=== PATIENT | male | born 1985 | race Caucasian/White ===

== ENCOUNTER 2016-10-09 10:09 | Emergency (ER) | payer MEDICAID ==
[2016-10-09] MEDS ORDERED: SODIUM CHLORIDE 0.9% 1,000 ML IV ONE (10:25)
[2016-10-09] MEDS ORDERED: CLINDAMYCIN 900 MG/50 ML 50 ML IV ONE ×2 (10:25→11:58)
== END 2016-10-09 13:13 | disposition home or self-care (01) ==
DX: L03.116 Cellulitis of left lower limb (principal); Z87.898 Personal history of other specified conditions; F17.200 Nicotine dependence, unspecified, uncomplicated

== ENCOUNTER 2018-07-03 08:08 | Emergency (ER) | payer MEDICAID ==
[2018-07-03] MEDS ORDERED: HYDROcod/ACETAM 5/325 MG TABLET PO STA (08:21)
--- NOTE | 2018-07-03 08:25 | ED Physician Documentation ---
PD HPI NECK PAIN - Stated complaint Stated Complaint: NECK PX - Chief complaint Chief Complaint: Back Pain - History obtained from History obtained from: Patient - History of Present Illness Timing - onset: How many days ago (10) Timing - duration: Days (10) Timing - details: Still present (Now worse.) Location: Lower, Right Quality: Pain Associated symptoms: Numbness (right shoulder). No: Fever, Weakness Worsened by: Movement Similar symptoms before: Has not had sx before - Treatment prior to arrival Treatment prior to arrival: Advil 400 mg. - Additional information Additional information: The patient is a 32-year-old male who presents with severe pain in his neck, starting 10 days ago. There is no known injury. The pain has been waxing and waning for the past 10 days, but became more severe this morning. He denies fever, difficulty breathing, or weakness. He does report mild decreased sensation in his right shoulder. He has no history of similar symptoms in the past. He took 400 mg ibuprofen this morning, without relief. Review of Systems Constitutional: denies: Fever Eyes: denies: Irritation Nose: denies: Congestion Throat: denies: Sore throat Cardiac: denies: Chest pain / pressure Respiratory: denies: Dyspnea, Cough GI: denies: Abdominal Pain, Nausea, Vomiting Skin: denies: Rash Musculoskeletal: reports: Neck pain. denies: Extremity pain Neurologic: reports: Numbness (Reports mild numbness right shoulder.). denies: Focal weakness, Headache PD PAST MEDICAL HISTORY - Past Medical History Cardiovascular: None Respiratory: None Neuro: None Endocrine/Autoimmune: None - Past Surgical History Past Surgical History: No - Present Medications Home Medications: Ambulatory Orders Medication Instructions Recorded Confirmed Cyclobenzaprine [Flexeril] 10 mg PO TID PRN #20 tablet 07/03/18 Ibuprofen [Advil] 400 mg PO 07/03/18 - Allergies Allergies/Adverse Reactions: Allergies Allergy/AdvReac Type Severity Reaction Status Date / Time azithromycin [From Zithromax] Allergy Anaphylaxis Verified 07/03/18 08:17 - Social History Does the pt smoke?: Yes Smoking Status: Current every day smoker Does the pt drink ETOH?: No Does the pt have substance abuse?: Yes PD ED PE NORMAL - Vitals Vital signs reviewed: Yes (normal) - General General: Alert and oriented X 3, Well developed/nourished - HEENT HEENT: Atraumatic, Pharynx benign - Neck Neck: Supple, no meningeal sign, Other (There is tenderness to palpation in the mid to lower cervical spine and right paraspinous musculature. There is decreased range of motion of the neck, due to pain. He is able to elevate both arms above his head, but elevation past 90 degrees exacerbates the neck pain, particularly with the left arm elevation. Distal neurovascular is intact.) - Cardiac Cardiac: RRR - Respiratory Respiratory: No respiratory distress, Clear bilaterally - Abdomen Abdomen: Soft, Non tender - Back Back: No CVA TTP, No spinal TTP - Derm Derm: No rash - Extremities Extremities: No tenderness to palpate, No edema - Neuro Neuro: Alert and oriented X 3, No motor deficit, No sensory deficit, Normal speech Results - Vitals Vitals: Vital Signs - 24 hr 07/03/18 08:14 Temperature 36.7 C Heart Rate 76 Respiratory 16 Rate Blood Pressure 127/83 H O2 Saturation 98 Oxygen O2 Source Room air - Rads (name of study) CT Cervical Spine Radiology: Prelim report reviewed, EMP read contemporaneously, See rad report (No acute findings. Minor degenerative changes seen.) PD MEDICAL DECISION MAKING - ED course Complexity details: reviewed results, re-evaluated patient, considered differential, d/w patient ED course: The patient's presentation is most consistent with cervical strain. There is no anatomic abnormality detected on CT scan that would account for the severity of his pain. Treatment in the emergency department included administration of Vicodin 1 tablet orally. He is being discharged with prescription for Flexeril. I discussed with him and his father the expected course of injury, symptomatic treatment and outpatient follow-up, as well as potentially worrisome signs or symptoms that should prompt reevaluation in the emergency department. Departure - Departure Disposition: 01 Home, Self Care Clinical Impression: Neck pain Condition: Stable Instructions: ED Neck Pain No Trauma Follow-Up: Florence Baker ARNP [Credentialed Staff Provider] - Prescriptions: Cyclobenzaprine [Flexeril] 10 mg PO TID PRN #20 tablet PRN Reason: Spasms Comments: Apply ice pack to your neck intermittently for the next 2 or 3 days. You can use ibuprofen, up to 800 mg 3 times daily for its anti-inflammatory effect. You can use Flexeril as prescribed if needed for spasms. Let pain be your guide to activity level. Follow-up with your primary physician within 2 weeks. Call to schedule appointment. Return to the emergency department if you develop increasing pain, numbness or weakness, or otherwise worsening symptoms.
--- NOTE | 2018-07-03 09:18 | CT Report ---
Reason: New onset, severe neck pain Procedure Date: 07/03/2018 Accession Number: [id number] / [id number] Procedure: CT - Cervical Spine W/O CPT Code: FULL RESULT: EXAM: CT CERVICAL SPINE WITHOUT CONTRAST DATE: 07/03/2018 08:55 AM. HISTORY: Cervicalgia. COMPARISONS: None. TECHNIQUE: Thin-section axial images were acquired of the cervical spine without contrast. Post-processing: Coronal and sagittal reformats. Other: None. In accordance with CT protocol optimization, one or more of the following dose reduction techniques were utilized for this exam: automated exposure control, adjustment of mA and/or KV based on patient size, or use of iterative reconstructive technique. FINDINGS: Alignment: No scoliosis or spondylolisthesis. Bones: No fracture or bone lesion. Interspace Levels/Facets: Minor degenerative changes are seen in the mid cervical spine. The bony central canal is relatively patent. Musculature: Normal. No fatty atrophy. Other: The paravertebral and prevertebral soft tissues are unremarkable. The lung apices are clear. IMPRESSION: No acute findings. Minor degenerative changes seen. [facility]IA
[2018-07-03 09:52] VITALS: BP 113/76
== END 2018-07-03 09:52 | disposition home or self-care (01) ==
LOC: ED 08:08
DX: M54.2 Cervicalgia (principal); F17.200 Nicotine dependence, unspecified, uncomplicated
CPT/HCPCS: 72125; 99283; A9270

== ENCOUNTER 2020-03-27 16:01 | Outpatient (CLI) | payer MEDICAID ==
[2020-03-27 16:27] LABS: BASOPHILS # (AUTO) 0.1 10^3/uL (0.0-0.1); BASOPHILS % (AUTO) 0.8 %; EOSINOPHILS # (AUTO) 0.1 10^3/uL (0.0-0.7); EOSINOPHILS % (AUTO) 1.4 %; HGB - HEMOGLOBIN 15.1 g/dL (14.0-18.0); LYMPHOCYTES # (AUTO) 1.9 10^3/uL (1.5-3.5); LYMPHOCYTES % (AUTO) 21.7 %; MEAN CORPUSCULAR HGB CONC 35.2 g/dL (32.0-36.0); MEAN CORPUSCULAR VOLUME 85.3 fL (80.0-94.0); MEAN PLATELET VOLUME 9.1 fL (7.4-11.4); MONOCYTES # (AUTO) 0.6 10^3/uL (0.0-1.0); MONOCYTES % (AUTO) 6.5 %; NEUTROPHILS # (AUTO) 6.2 10^3/uL (1.5-6.6); NEUTROPHILS % (AUTO) 69.4 %; PLT - PLATELET COUNT 206 10^3/uL (130-450); RED BLOOD COUNT 5.03 10^6/uL (4.70-6.10); RED CELL DISTRIBUTION WIDTH 12.5 % (12.0-15.0); WHITE BLOOD COUNT 8.9 x10^3/uL (4.8-10.8)
[2020-03-27 16:42] LABS: ALBUMIN 4.6 g/dL (3.2-5.5); BILIRUBIN,DIRECT 0.2 mg/dL (0.1-0.5); BILIRUBIN,TOTAL 0.7 mg/dL (0.2-1.0); CREATININE 0.9 mg/dL (0.6-1.2); TOTAL PROTEIN 7.4 g/dL (6.7-8.2)
[2020-03-28 15:53] LABS: HIV AG/AB 4TH GEN NON-REACTIVE (NON-REACTIVE)
== END 2020-03-27 16:02 | disposition home or self-care (01) ==
LOC: LAB 16:01
PROVIDERS: ATTEND Emergency Medicine
DX: F11.20 Opioid dependence, uncomplicated (principal); B19.20 Unspecified viral hepatitis C without hepatic coma
CPT/HCPCS: 36415; 80048; 80076; 81599; 85025; 86592; 86704; 86706; 86708; 86803; 87340; 87389

== ENCOUNTER 2020-04-28 11:36 | Outpatient (CLI) | payer MEDICAID | END 2020-04-28 11:37 | disposition home or self-care (01) | LOC: LAB 11:36 | PROVIDERS: ATTEND Physician Assistant | DX: Z01.818 Encounter for other preprocedural examination (principal); Z20.828 Contact with and (suspected) exposure to other viral communicable diseases ==

== ENCOUNTER 2020-05-02 06:40 | Outpatient (CLI) | payer MEDICAID ==
--- NOTE | 2020-05-02 10:06 | Ultrasound Report ---
PROCEDURE: Abdomen Complete INDICATIONS: UNINTENTIONAL WEIGHT LOSS TECHNIQUE: Real-time scanning was performed of the abdominal and retroperitoneal organs, with image documentatio n. COMPARISON: None. FINDINGS: Liver: Increased hepatic parenchymal echogenicity most likely reflecting diffuse hepatic steatosis. N o focal hepatic mass. Gallbladder: Normal without shadowing calculus, sludge, wall thickening, or pericholecystic fluid. Biliary ducts: Intrahepatic bile ducts are non-dilated. Extrahepatic bile duct caliber measures 4.5 mm. Normal is 6-7 mm or less in diameter, or 10 mm or less post-cholecystectomy. Pancreas: Visualized portions of the pancreas are sonographically normal. Spleen: Spleen is normal in size and homogeneous in echotexture. Kidneys: Kidneys are normal in size and echotexture. Right kidney measures 10.6 cm long; left kidne y measures 11.9 cm long. No hydronephrosis or nephrolithiasis. No solid masses. Aorta: Visualized aorta is normal in caliber at less than 3 cm. Iliacs: Proximal common iliac arteries are normal in caliber at less than 2.5 cm. IVC: Intrahepatic inferior vena cava is patent. Miscellaneous: No free abdominal fluid. IMPRESSION: No acute finding. Hepatic steatosis. Reviewed by: Se Coello MD on 05/02/2020 10:05 AM PDT Approved by: Se Coello MD on 05/02/2020 10:05 AM PDT Station ID: [id number]
== END 2020-05-02 06:41 | disposition home or self-care (01) ==
LOC: DI 06:40
PROVIDERS: ATTEND Registered Nurse
DX: K76.0 Fatty (change of) liver, not elsewhere classified (principal)
CPT/HCPCS: 76700

== ENCOUNTER 2021-10-09 08:00 | Outpatient (CLI) | payer MEDICAID ==
[2021-10-09 20:31] LABS: BASOPHILS # (AUTO) 0.1 10^3/uL (0.0-0.1); BASOPHILS % (AUTO) 0.9 %; EOSINOPHILS # (AUTO) 0.1 10^3/uL (0.0-0.7); EOSINOPHILS % (AUTO) 1.6 %; HCT - HEMATOCRIT 47.2 % (42.0-52.0); HGB - HEMOGLOBIN 15.9 g/dL (14.0-18.0); LYMPHOCYTES # (AUTO) 1.8 10^3/uL (1.5-3.5); LYMPHOCYTES % (AUTO) 21.7 %; MEAN CORPUSCULAR HEMOGLOBIN 30.6 pg (27.0-31.0); MEAN CORPUSCULAR HGB CONC 33.7 g/dL (32.0-36.0); MEAN CORPUSCULAR VOLUME 90.9 fL (80.0-94.0); MEAN PLATELET VOLUME 9.9 fL (7.4-11.4); MONOCYTES # (AUTO) 0.6 10^3/uL (0.0-1.0); MONOCYTES % (AUTO) 7.5 %; NEUTROPHILS # (AUTO) 5.5 10^3/uL (1.5-6.6); NEUTROPHILS % (AUTO) 68.1 %; PLT - PLATELET COUNT 266 10^3/uL (130-450); RED BLOOD COUNT 5.19 10^6/uL (4.70-6.10); RED CELL DISTRIBUTION WIDTH 12.6 % (12.0-15.0); WHITE BLOOD COUNT 8.1 x10^3/uL (4.8-10.8)
[2021-10-09 20:39] LABS: ALBUMIN 4.6 g/dL (3.2-5.5); ALBUMIN/GLOBULIN RATIO 1.6 (1.0-2.2); BILIRUBIN,TOTAL 0.5 mg/dL (0.2-1.0); CREATININE 0.8 mg/dL (0.6-1.2); POTASSIUM 4.1 mmol/L (3.5-5.0); TOTAL PROTEIN 7.5 g/dL (6.7-8.2)
== END 2021-10-09 23:59 | disposition home or self-care (01) ==
LOC: LAB.S 08:00
PROVIDERS: ATTEND Physician Assistant Medical
DX: Z79.899 Other long term (current) drug therapy (principal)
CPT/HCPCS: 36415; 80053; 85025